=== PATIENT | male | born 1990 | race African-American/Black ===

== ENCOUNTER 2019-09-13 15:32 | Emergency (ER) | payer SELFPAY ==
[2019-09-13] MEDS ORDERED: ONDANSETRON HCL INJ/PF 4 MG/2 ML SDV IV ONE (16:10)
[2019-09-13] MEDS ORDERED: ONDANSETRON HCL INJ/PF 4 MG/2 ML SDV ONE (16:11)
[2019-09-13] MEDS ORDERED: FAMOTIDINE INJ/PF 20 MG/2 ML SDV IV ONE (16:11)
[2019-09-13] MEDS ORDERED: NORMAL SALINE 1000 ML 1,000 ML IV ONE ×2 (16:11→16:59)
--- NOTE | 2019-09-13 16:13 | ER Document Report ---
ED GI/ - General Chief Complaint: Nausea/Vomiting Stated Complaint: VOMITING Time Seen by Provider: 09/13/19 15:50 Mode of Arrival: Ambulatory Information source: Patient Notes: Otherwise healthy 29-year-old male presented to the emergency department chief complaint of nausea vomiting that began yesterday. Patient reports he vomited approximately 6 times yesterday and 6 times today. He denies any fever or diarrhea. He denies any abdominal pain. He denies any recent sick contacts or any exposure to any known COVID-19 patients. He has not traveled. - Related Data Allergies/Adverse Reactions: No Known Allergies Allergy (Verified 09/13/19 16:05) Past Medical History - General Information source: Patient - Social History Smoking Status: Current Every Day Smoker Frequency of alcohol use: None Drug Abuse: Marijuana Family History: Reviewed & Not Pertinent Patient has homicidal ideation: No - Medical History Medical History: Negative Surgical Hx: Negative - Immunizations Immunizations up to date: Yes Review of Systems - Review of Systems Constitutional: No symptoms reported EENT: No symptoms reported Cardiovascular: No symptoms reported Respiratory: No symptoms reported Gastrointestinal: Nausea, Vomiting Genitourinary: No symptoms reported Male Genitourinary: No symptoms reported Musculoskeletal: No symptoms reported Skin: No symptoms reported Hematologic/Lymphatic: No symptoms reported Neurological/Psychological: No symptoms reported Physical Exam - Vital signs Vitals: Temp Pulse Resp BP Pulse Ox 98.0 F 73 18 110/85 98 09/13/19 15:45 09/13/19 15:45 09/13/19 15:45 09/13/19 15:45 09/13/19 15:45 - Notes Notes: PHYSICAL EXAMINATION: GENERAL: Well-appearing, well-nourished and in no acute distress. HEAD: Atraumatic, normocephalic. EYES: Pupils equal round and reactive to light, extraocular movements intact, sclera anicteric, conjunctiva are normal. ENT: Nares patent, oropharynx clear without exudates. Moist mucous membranes. NECK: Normal range of motion, supple without lymphadenopathy LUNGS: Breath sounds clear to auscultation bilaterally and equal. No wheezes rales or rhonchi. HEART: Regular rate and rhythm without murmurs ABDOMEN: Soft, nontender, nondistended abdomen. No guarding, no rebound. No masses appreciated. Musculoskeletal: Normal range of motion, no pitting or edema. No cyanosis. NEUROLOGICAL: Cranial nerves grossly intact. Normal speech, normal gait. Normal sensory, motor exams PSYCH: Normal mood, normal affect. SKIN: Warm, Dry, normal turgor, no rashes or lesions noted. Course - Re-evaluation Re-evalutation: Laboratory 09/13/19 09/13/19 16:00 16:00 WBC 14.8 H RBC 5.27 Hgb 14.5 Hct 44.6 MCV 85 MCH 27.6 MCHC 32.6 RDW 13.2 Plt Count 230 Lymph % (Auto) 7.6 L [place] % (Auto) 3.6 Eos % (Auto) 0.0 Baso % (Auto) 0.1 Absolute Neuts (auto) 13.2 H Absolute Lymphs (auto) 1.1 Absolute Monos (auto) 0.5 Absolute Eos (auto) 0.0 Absolute Basos (auto) 0.0 Seg Neutrophils % 88.7 H Sodium 133.5 L Potassium 4.3 Chloride 97 L Carbon Dioxide 25 Anion Gap 12 BUN 21 H Creatinine 1.33 H Est GFR ( Amer) > 60 Est GFR (MDRD) Non-Af > 60 Glucose 114 H Calcium 9.8 Total Bilirubin 2.1 H Direct Bilirubin 0.0 Neonat Total Bilirubin Not Reportable Neonat Direct Bilirubin Not Reportable Neonat Indirect Bili Not Reportable AST 33 ALT 34 Alkaline Phosphatase 76 Total Protein 8.6 H Albumin 5.1 H Lipase 32.7 This 29-year-old male patient appears nontoxic, is alert and interactive. He has no focal abdominal tenderness. His labs are reassuring. He does have a leukocytosis however this is likely secondary to vomiting. He has had no fever and again no complaints of pain. He is feeling much improved after administration of antiemetics and IV fluids here in the emergency department. He will be discharged home at this time with strict ED return precautions. - Vital Signs Vital signs: Temp Pulse Resp BP Pulse Ox 97.8 F 66 15 133/88 H 97 09/13/19 19:22 09/13/19 19:22 09/13/19 19:22 09/13/19 19:22 09/13/19 19:22 - Laboratory Result Diagrams: 09/13/19 16:00 09/13/19 16:00 Laboratory results interpreted by me: 09/13/19 09/13/19 16:00 16:00 WBC 14.8 H Lymph % (Auto) 7.6 L Absolute Neuts (auto) 13.2 H Seg Neutrophils % 88.7 H Sodium 133.5 L Chloride 97 L BUN 21 H Creatinine 1.33 H Glucose 114 H Total Bilirubin 2.1 H Total Protein 8.6 H Albumin 5.1 H Discharge - Discharge Clinical Impression: Dehydration Nausea and vomiting Qualifiers: Vomiting type: unspecified Vomiting Intractability: unspecified Qualified Code(s): R11.2 - Nausea with vomiting, unspecified Condition: Stable Disposition: HOME, SELF-CARE Instructions: Antinausea Medication ([facility]), Intravenous (IV) Fluids ([facility]), Vomiting ([facility]) Additional Instructions: Increase your fluid intake. Take antinausea medication as prescribed. Return to the emergency department with worsening symptoms such as development of abdominal pain, vomiting blood, blood in your stool or development of fever. Prescriptions: Promethazine HCl [Phenergan 25 mg Tablet] 1 - 2 tab PO Q6H PRN #15 tablet PRN Reason: Forms: Return to Work
[2019-09-13 16:19] LABS: ABSOLUTE LYMPHOCYTES (AUTO) 1.1 10^3/uL (0.5-4.7); ABSOLUTE MONOCYTES (AUTO) 0.5 10^3/uL (0.1-1.4); ABSOLUTE NEUT (AUTO) 13.2 10^3/uL (1.7-8.2); BASOPHILS % (AUTO) 0.1 % (0-2); HEMATOCRIT 44.6 % (37.9-51.0); HEMOGLOBIN 14.5 g/dL (13.5-17.0); LYMPHOCYTES % (AUTO) 7.6 % (13-45); MEAN CORPUSCULAR HEMOGLOBIN 27.6 pg (27.0-33.4); MEAN CORPUSCULAR HGB CONC 32.6 g/dL (32.0-36.0); MEAN CORPUSCULAR VOLUME 85 fl (80-97); MONOCYTES % (AUTO) 3.6 % (3-13); PLATELET COUNT 230 10^3/uL (150-450); RED BLOOD COUNT 5.27 10^6/uL (4.35-5.55); RED CELL DISTRIBUTION WIDTH 13.2 % (11.5-14.0); SEGMENTED NEUTROPHILS % (AUTO) 88.7 % (42-78); TOTAL CELLS COUNTED % (AUTO) 100 %; WHITE BLOOD COUNT 14.8 10^3/uL (4.0-10.5)
[2019-09-13 16:28] LABS: ALBUMIN 5.1 g/dL (3.5-5.0); ALKALINE PHOSPHATASE 76 U/L (38-126); ANION GAP 12 (5-19); ASPARTATE AMINO TRANSFERASE 33 U/L (17-59); BILIRUBIN,TOTAL 2.1 mg/dL (0.2-1.3); BLOOD UREA NITROGEN 21 mg/dL (7-20); CALCIUM 9.8 mg/dL (8.4-10.2); CARBON DIOXIDE 25 mmol/L (22-30); CHLORIDE 97 mmol/L (98-107); GLUCOSE 114 mg/dL (75-110); POTASSIUM 4.3 mmol/L (3.6-5.0); TOTAL PROTEIN 8.6 g/dL (6.3-8.2)
[2019-09-13] MEDS ORDERED: METOCLOPRAMIDE HCL INJ/PF 10 MG/2 ML SDV IV ONE (17:57)
[2019-09-13 19:23] VITALS: BP 133/88
== END 2019-09-13 19:23 | disposition home or self-care (01) ==
LOC: ER 15:32
DX: E86.0 Dehydration (principal); R11.2 Nausea with vomiting, unspecified; F17.200 Nicotine dependence, unspecified, uncomplicated
CPT/HCPCS: 99283; 96361; 96374; 96375; 36415; 83690; 85025; 80053; J2765; J2405; J7030; S0028